=== PATIENT | male | born 1950 | race Two or more races ===

== ENCOUNTER 2018-10-14 04:36 | Inpatient (IN) | payer MEDICARE ==
[~2018-10-14] VITALS: Ht 175.3 cm; Wt 75.4 kg
--- NOTE | 2018-10-14 04:48 | NUR ---
PT BIBRA FROM RESIDENCE C/O "DULL" L SHOULDER PAIN. PT DENIES INJURY/CP/SOB. PT ON MONITOR IN BED 7. WILL CONTINUE TO MONITOR.
--- NOTE | 2018-10-14 04:51 | NUR ---
TECH AT BEDSIDE FOR EKG
--- NOTE | 2018-10-14 04:56 | NUR ---
FAMILY AT BEDSIDE.
[2018-10-14 05:18] LABS: BASOPHILS % (AUTO) 0.4 % (0.0-2.0); EOSINOPHILS % (AUTO) 4.3 % (0.0-6.0); HEMATOCRIT 45 % (39-51); LYMPHOCYTES # (AUTO) 1.6 /CMM (0.8-4.8); LYMPHOCYTES % (AUTO) 25.1 % (20.0-44.0); MEAN CORPUSCULAR HGB CONC 33 g/dl (31.0-36.0); MEAN CORPUSCULAR VOLUME 96 fL (80-96); MONOCYTES # (AUTO) 0.6 /CMM (0.1-1.30); MONOCYTES % (AUTO) 9.5 % (2.0-12.0); NEUTROPHILS # (AUTO) 3.9 /CMM (1.8-8.9); NEUTROPHILS % (AUTO) 60.7 % (43.0-81.0); PLATELET COUNT (AUTO) 191 /CMM (150-450); RED BLOOD CELL COUNT(AUTO) 4.71 MIL/uL (4.5-6.0); WHITE BLOOD COUNT (AUTO) 6.4 K/uL (4.3-11.0)
[2018-10-14 05:26] LABS: CALCIUM, SERUM 8.8 mg/dL (8.5-10.1); CREATININE 1.5 mg/dL (0.6-1.3); POTASSIUM 4.4 mmol/L (3.5-5.1)
--- NOTE | 2018-10-14 05:51 | NUR ---
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
[2018-10-14] MEDS ORDERED: KETOROLAC TROMETHAMINE 15 MG/ML VIAL ONE (06:28)
[2018-10-14] MEDS ORDERED: ENALAPRILAT DIHYD. (2.5MG/ML) 1.25 MG/ML VIAL IV ONE (06:28)
[2018-10-14] MEDS ORDERED: KETOROLAC TROMETHAMINE INJ 30 MG/ML VIAL IV ONE (06:30)
[2018-10-14] MEDS ORDERED: ENALAPRILAT INJ (1.25 MG/ML) 1.25 MG/ML VIAL IV PRN (06:30)
--- NOTE | 2018-10-14 07:10 | NUR ---
ENDORSED TO [facility] FOR SAULO
--- NOTE | 2018-10-14 07:38 | NUR ---
PT ALERT AND AWAKE WITHOUT PAIN RESTING QUIETLY IN SUPINE POSITION ON [employer] PT HAS ICD AND 20G PIV IN LEFT AC FLUSHES WELL WITHOUT REDNESS, PAIN OR SWELLING PT CHANGED INTO HOSPITAL GOWN AND GIVEN NON-SLIP SOCKS SPOUSE AT BEDSIDE PENDING TRANSFER TO [facility] ROOM 116 ADMITTING MD MARIE
[2018-10-14] MEDS ORDERED: CLOP75TA15 PO (07:53)
[2018-10-14] MEDS ORDERED: TAMS0.4C34 PO (07:53)
[2018-10-14] MEDS ORDERED: ROSU40TA22 PO (07:53)
[2018-10-14] MEDS ORDERED: ASPI-1169 PO (07:53)
[2018-10-14] MEDS ORDERED: GLIP2.5T3 PO (07:53)
[2018-10-14] MEDS ORDERED: LOSA50TA39 PO (07:53)
[2018-10-14] MEDS ORDERED: OMEG1CAP PO (07:53)
[2018-10-14] MEDS ORDERED: ASCO500T9 PO (07:53)
[2018-10-14] MEDS ORDERED: CHOL100044 PO (07:53)
--- NOTE | 2018-10-14 08:13 | NUR ---
rn report given to tamra
[2018-10-14 08:17] VITALS: BP 142/79
--- NOTE | 2018-10-14 08:17 | NUR ---
[facility]/RN: Pt received in stable condition, no distress, breathing even and unlabored. Ambulates, no SOB noted. IV HL on R AC flushed and intact. Monitor applied; SR on monitor. Denies CP, pain management from ER effective. Will cont to monitor pt.
--- NOTE | 2018-10-14 11:10 | NUR ---
JAC[facility]/RN: Franck Beverly NP and Dr Aden [cardiology covering for Dr Colunga] at bedside; discussing pt status. Pt informed medical team that Dr Barber and his primary medical team recommends a pacemaker placement and are willing to accept him at [facility] for a procedure at 1530 today. Case management notified of pt request. Pt is anxious and wishes to expedite transfer process. Case discussed by medical and nursing staff extensively. Will cont to monitor pt.
[2018-10-14 11:42] VITALS: BP 142/81
--- NOTE | 2018-10-14 12:40 | NUR ---
JAC[facility]/RN: Pt wishes to go AMA, per pt, a procedure is scheduled at 1530 by animal ride attendant and wants to have pacemaker put in as soon as possible. Awaiting acceptance from [facility] regarding transfer per CM. Informed pt that troponin has gone up to 14.4 which is indicative of cardiac damage and that pt requires monitoring en route. Per pt and "I will head straight to [facility] from here." Strongly advised to stay for monitoring and safety, Franck Beverly NP notified of lab results and pt insistence to go AMA. lap polisher aware.
== END 2018-10-14 12:40 | disposition left against medical advice (07) | DRG 302 ==
LOC: ER 04:38 → TELE-TD 06:11
PROVIDERS: ADMIT Nurse Practitioner Acute Care; ATTEND Nurse Practitioner Acute Care
DX: I25.10 Atherosclerotic heart disease of native coronary artery without angina pectoris (principal); N17.0 Acute kidney failure with tubular necrosis; R00.1 Bradycardia, unspecified; I10 Essential (primary) hypertension; Z95.810 Presence of automatic (implantable) cardiac defibrillator; E78.5 Hyperlipidemia, unspecified; I25.2 Old myocardial infarction; Z95.5 Presence of coronary angioplasty implant and graft
CPT/HCPCS: 36415; 71045-TC; 80048-TC; 84484-TC; 85025-TC; 85730-TC; 87081-TC; A4606; G0378; J1885; J3490; Z7610